=== PATIENT | female | born 1995 | race Two or more races ===

== ENCOUNTER 2018-01-15 15:11 | Emergency (ER) | payer OTHER ==
[~2018-01-15] VITALS: Ht 165.1 cm; Wt 59.4 kg
== END 2018-01-15 18:29 | disposition home or self-care (01) ==
LOC: ER 15:11
DX: S90.112A Contusion of left great toe without damage to nail, initial encounter (principal); W22.8XXA Striking against or struck by other objects, initial encounter; Y93.89 Activity, other specified; Y92.89 Other specified places as the place of occurrence of the external cause; Y99.8 Other external cause status

== ENCOUNTER 2018-01-20 18:40 | Emergency (ER) | payer OTHER ==
[~2018-01-20] VITALS: Ht 165.1 cm; Wt 59.0 kg
== END 2018-01-20 20:16 | disposition home or self-care (01) ==
LOC: ER 18:40
DX: L03.032 Cellulitis of left toe (principal)

== ENCOUNTER 2018-11-08 11:01 | Emergency (ER) | payer OTHER ==
[~2018-11-08] VITALS: Ht 165.1 cm; Wt 54.4 kg
== END 2018-11-08 17:08 | disposition home or self-care (01) ==
LOC: ER 11:01
DX: L60.0 Ingrowing nail (principal)

== ENCOUNTER → 2018-12-21 | Emergency (ER) | payer OTHER ==
[~2018-12-21] VITALS: Ht 167.6 cm; Wt 54.4 kg
[~2018-12-21] MED LIST: AMOX-CLAV 875-1 EACH PO; INTESTINEX680 M1 PO; [UNRECOGNIZED DRUG - OTHER]
== END | disposition home or self-care (01) ==
LOC: ER 18:11
DX: S51.021A Laceration with foreign body of right elbow, initial encounter (principal); W26.8XXA Contact with other sharp object(s), not elsewhere classified, initial encounter; Y93.E9 Activity, other interior property and clothing maintenance; Y92.018 Other place in single-family (private) house as the place of occurrence of the external cause; Y99.8 Other external cause status

== ENCOUNTER 2019-03-10 16:00 | Emergency (ER) | payer OTHER ==
[~2019-03-10] VITALS: Ht 167.6 cm; Wt 55.3 kg
[2019-03-10] MEDS ORDERED: IBUPROFEN800 MG (16:40)
== END 2019-03-10 20:43 | disposition home or self-care (01) ==
LOC: ER 16:00
DX: K29.60 Other gastritis without bleeding (principal)